=== PATIENT | male | born 1990 | race Caucasian/White ===

== ENCOUNTER 2017-01-15 10:51 | Emergency (ER) | payer MEDICARE, MEDICAID ==
[~2017-01-15] VITALS: Ht 177.8 cm; Wt 90.7 kg
[~2017-01-15 10:51] MED LIST: ADVAIR DISKUS 51 DSK; ALBUTEROL0.09 MG/A2; AMOXICILLIN500 M2 PO; ATARAX25 MG PO; BACTROBAN CREAM15 GM T; BENADRYL25 MG PO; BIAXIN500 MG PO; BIPOLAR MED; CARAFATE1 G1 PO; CIPRO500 MG PO; CLARITIN10 MG PO; CYCLOBENZAPRINE10 MG PO; FLEXERIL5 MG PO; FLONASE ALLERG9.9 ML NAS; FLUOXETINE HYDR20 M1 PO; HYDROCODONE BIT1 T11 PO; IBU-8800 MG PO; IBU800 M1 PO; IBU800 MG PO; LATUDA20 MG; LOW DOSE ASPIRI81 MG PO; MEDROL DOSEPAK4 MG PO; METHYLPRED-DP4 MG PO; MOTRIN800 MG PO; Motrin,Rufen800 MG PO; NAPROSYN500 MG PO; NKHM; PAIN PILL; PENICILLIN VK500 MG PO; PROZAC20 MG PO; Peridex 473 ML473 ML PO; REGLAN10 MG PO; ROBAXIN750 MG PO; SEROQUEL100 MG PO; SERTRALINE HYDR25 MG PO; STRATTERA60 MG PO; VALIUM10 MG PO; VALIUM5 MG PO; VENTOLIN H0.09 MG/AC INH; VOLTAREN50 M1 PO; ZANTAC150 MG PO; ZITHROMAX Z PA250 MG PO; ZITHROMAX250 MG PO; [UNRECOGNIZED DRUG - OTHER]
[2017-01-15] MEDS ORDERED: NAPROSYN500 MG PO (11:12)
[2017-01-15] MEDS ORDERED: Peridex 473 ML473 ML PO (11:12)
[2017-01-15] MEDS ORDERED: CLINDAMYCIN150 MG PO (11:12)
[2017-01-15 19:54] VITALS: BP 177/100
[2017-01-15] MEDS ORDERED: HYDROCODONE BIT1 T11 PO (20:03)
== END 2017-01-15 19:56 | disposition home or self-care (01) ==
LOC: ED 10:51
DX: K04.7 Periapical abscess without sinus (principal); R03.0 Elevated blood-pressure reading, without diagnosis of hypertension; Z91.030 Bee allergy status; Z91.040 Latex allergy status

== ENCOUNTER 2018-02-16 21:23 | Emergency (ER) | payer MEDICARE, MEDICAID ==
[~2018-02-16] VITALS: Ht 177.8 cm; Wt 117.9 kg
[2018-02-16 21:23] VITALS: BP 149/98
[~2018-02-16 21:23] MED LIST changes: +CLINDAMYCIN150 MG PO
[2018-02-16] MEDS ORDERED: NAPROSYN500 MG PO (23:42)
== END 2018-02-17 00:23 | disposition home or self-care (01) ==
LOC: ED 21:23
DX: S20.212A Contusion of left front wall of thorax, initial encounter (principal); S20.211A Contusion of right front wall of thorax, initial encounter; F17.200 Nicotine dependence, unspecified, uncomplicated; Z79.899 Other long term (current) drug therapy; Z91.030 Bee allergy status; Z91.040 Latex allergy status; W22.8XXA Striking against or struck by other objects, initial encounter; Y93.89 Activity, other specified; Y92.89 Other specified places as the place of occurrence of the external cause; Y99.9 Unspecified external cause status

== ENCOUNTER → 2018-08-17 | Outpatient (CLI) | payer MEDICARE, MEDICAID ==
[2018-08-17 16:58] LABS: HEMATOCRIT 44.4 % (42.0-52.0); HEMOGLOBIN 14.9 g/dl (14.0-18.0); MEAN CELL VOLUME 87.4 fl (80.0-94.0); MEAN CORPUSCULAR HGB 29.3 pg (27.0-31.0); MEAN CORPUSCULAR HGB CONC 33.6 g/dl (33.0-37.0); MEAN PLATELET VOLUME 9.2 fl (9.6-12.3); RED BLOOD COUNT 5.08 10*6/uL (4.50-5.90); RED CELL DISTRI WIDTH 11.9 % (0-14.5); WHITE BLOOD COUNT 9.1 10*3/uL (4.8-10.8)
[2018-08-17 17:12] LABS: ALBUMIN 3.9 gm/dl (3.1-4.5); ALKALINE PHOSPHATASE 87 U/L (45-117); BUN 8 mg/dl (7-24); CHLORIDE 110 mmol/L (98-107); CHOLESTEROL 163 mg/dL (<200); CREATININE 1.05 mg/dL (0.70-1.30); HDL CHOLESTEROL 31 mg/dl (40-60); LDL CHOLESTEROL 105 mg/dL (9-159); POTASSIUM 3.8 mmol/L (3.5-5.1); SGOT/AST 27 IU/L (3-35); SGPT/ALT 46 U/L (12-78); SODIUM 141 mmol/L (136-145); TOTAL PROTEIN 7.7 gm/dL (6.4-8.2); TRIGLYCERIDES 135 mg/dl (<150); VLDL CHOLESTEROL 27 mg/dL (6-40)
== END | disposition home or self-care (01) ==
LOC: LAB 16:21
PROVIDERS: Family Medicine
DX: E78.00 Pure hypercholesterolemia, unspecified (principal); E55.9 Vitamin D deficiency, unspecified; F41.1 Generalized anxiety disorder; F90.9 Attention-deficit hyperactivity disorder, unspecified type; E74.00 Glycogen storage disease, unspecified; J45.909 Unspecified asthma, uncomplicated; J98.11 Atelectasis; Z87.891 Personal history of nicotine dependence

== ENCOUNTER → 2019-01-16 | Outpatient (CLI) | payer MEDICARE, MEDICAID | END | disposition home or self-care (01) | LOC: RAD 14:53 | DX: M76.61 Achilles tendinitis, right leg (principal) ==

== ENCOUNTER 2019-10-10 00:10 | Emergency (ER) | payer MEDICARE, MEDICAID ==
[~2019-10-10] VITALS: Ht 177.8 cm; Wt 104.3 kg
[2019-10-10 03:00] VITALS: BP 133/91
== END 2019-10-10 03:19 | disposition home or self-care (01) ==
LOC: ED 00:10
DX: R51 Headache (principal); I10 Essential (primary) hypertension; F31.9 Bipolar disorder, unspecified; Z91.038 Other insect allergy status; Z91.040 Latex allergy status; Z79.899 Other long term (current) drug therapy; Z79.2 Long term (current) use of antibiotics

== ENCOUNTER 2019-10-14 02:51 | Emergency (ER) | payer MEDICARE, MEDICAID ==
[~2019-10-14] VITALS: Ht 177.8 cm; Wt 104.3 kg
[2019-10-14] MEDS ORDERED: Motrin,Rufen800 MG PO (04:34)
== END 2019-10-14 04:51 | disposition home or self-care (01) ==
LOC: ED 02:51
DX: B34.9 Viral infection, unspecified (principal); I10 Essential (primary) hypertension; F17.200 Nicotine dependence, unspecified, uncomplicated; Z91.030 Bee allergy status; Z91.040 Latex allergy status; Z79.2 Long term (current) use of antibiotics; Z79.899 Other long term (current) drug therapy

== ENCOUNTER 2019-11-15 21:03 | Emergency (ER) | payer MEDICARE, MEDICAID ==
[~2019-11-15] VITALS: Ht 177.8 cm; Wt 104.3 kg
[2019-11-15 21:08] VITALS: BP 141/82
== END 2019-11-16 00:01 | disposition home or self-care (01) ==
LOC: ED 21:03
DX: S96.911A Strain of unspecified muscle and tendon at ankle and foot level, right foot, initial encounter (principal); F17.200 Nicotine dependence, unspecified, uncomplicated; Z91.030 Bee allergy status; Z91.040 Latex allergy status; Z79.899 Other long term (current) drug therapy; Z79.2 Long term (current) use of antibiotics; X58.XXXA Exposure to other specified factors, initial encounter; Y93.89 Activity, other specified; Y92.89 Other specified places as the place of occurrence of the external cause; Y99.8 Other external cause status

== ENCOUNTER 2019-11-16 17:00 | Emergency (ER) | payer MEDICARE, MEDICAID ==
[~2019-11-16] VITALS: Ht 177.8 cm; Wt 104.3 kg
[2019-11-16 17:20] VITALS: BP 140/80
== END 2019-11-16 18:32 | disposition home or self-care (01) ==
LOC: ED 17:00
DX: S93.402A Sprain of unspecified ligament of left ankle, initial encounter (principal); I10 Essential (primary) hypertension; F17.200 Nicotine dependence, unspecified, uncomplicated; Z91.030 Bee allergy status; Z91.040 Latex allergy status; Z79.899 Other long term (current) drug therapy; X58.XXXA Exposure to other specified factors, initial encounter; Y93.89 Activity, other specified; Y92.89 Other specified places as the place of occurrence of the external cause; Y99.8 Other external cause status

== ENCOUNTER 2019-11-18 20:41 | Emergency (ER) | payer MEDICARE, MEDICAID ==
[~2019-11-18] VITALS: Ht 177.8 cm; Wt 104.3 kg
[2019-11-18 20:41] VITALS: BP 1142/70
== END 2019-11-18 20:56 | disposition home or self-care (01) ==
LOC: ED 20:41
DX: M25.572 Pain in left ankle and joints of left foot (principal); Z91.030 Bee allergy status; Z91.040 Latex allergy status; Z79.899 Other long term (current) drug therapy; X58.XXXA Exposure to other specified factors, initial encounter; Y93.89 Activity, other specified; Y92.098 Other place in other non-institutional residence as the place of occurrence of the external cause; Y99.8 Other external cause status

== ENCOUNTER 2019-11-26 14:52 | Emergency (ER) | payer MEDICARE, MEDICAID ==
[~2019-11-26] VITALS: Ht 177.8 cm; Wt 99.8 kg
[2019-11-26 14:56] VITALS: BP 156/98
[2019-11-26] MEDS ORDERED: DOXYCYCLINE100 M3 PO (14:57)
[2019-11-26] MEDS ORDERED: IBUPROFEN600 MG PO (14:57)
== END 2019-11-26 14:59 | disposition home or self-care (01) ==
LOC: ED 14:52
DX: J34.0 Abscess, furuncle and carbuncle of nose (principal); Z91.030 Bee allergy status; Z91.040 Latex allergy status; Z79.899 Other long term (current) drug therapy

== ENCOUNTER 2019-12-26 20:49 | Emergency (ER) | payer MEDICARE, MEDICAID ==
[~2019-12-26] VITALS: Wt 102.1 kg
[~2019-12-26 20:49] MED LIST changes: +DOXYCYCLINE100 M3 PO; +IBUPROFEN600 MG PO
[2019-12-26 21:10] VITALS: BP 150/78
== END 2019-12-26 21:50 | disposition home or self-care (01) ==
LOC: ED 20:49
DX: R11.10 Vomiting, unspecified (principal); I10 Essential (primary) hypertension; F31.9 Bipolar disorder, unspecified; F17.200 Nicotine dependence, unspecified, uncomplicated; Z91.040 Latex allergy status; Z91.030 Bee allergy status; Z79.899 Other long term (current) drug therapy

== ENCOUNTER 2020-01-24 10:27 | Emergency (ER) | payer MEDICARE, MEDICAID ==
[~2020-01-24] VITALS: Wt 95.3 kg
[2020-01-24 10:39] VITALS: BP 148/75
[2020-01-24] MEDS ORDERED: IBU800 MG PO (12:31)
== END 2020-01-24 12:33 | disposition home or self-care (01) ==
LOC: ED 10:27
DX: S32.2XXA Fracture of coccyx, initial encounter for closed fracture (principal); Z91.030 Bee allergy status; Z91.040 Latex allergy status; Z79.899 Other long term (current) drug therapy; W10.8XXA Fall (on) (from) other stairs and steps, initial encounter; Y93.89 Activity, other specified; Y92.89 Other specified places as the place of occurrence of the external cause; Y99.8 Other external cause status

== ENCOUNTER 2020-02-05 23:09 | Emergency (ER) | payer MEDICARE, MEDICAID ==
[~2020-02-05] VITALS: Ht 177.8 cm; Wt 99.8 kg
[2020-02-05 23:25] VITALS: BP 144/84
== END 2020-02-06 00:07 | disposition home or self-care (01) ==
LOC: ED 23:09
DX: T21.12XA Burn of first degree of abdominal wall, initial encounter (principal); Z91.040 Latex allergy status; Z91.030 Bee allergy status; Z79.899 Other long term (current) drug therapy; X58.XXXA Exposure to other specified factors, initial encounter; Y93.89 Activity, other specified; Y92.89 Other specified places as the place of occurrence of the external cause; Y99.8 Other external cause status

== ENCOUNTER 2020-02-11 16:27 | Emergency (ER) | payer MEDICARE, MEDICAID ==
[~2020-02-11] VITALS: Ht 177.8 cm; Wt 99.8 kg
[2020-02-11 16:47] VITALS: BP 147/95
[2020-02-11 17:53] LABS: BASO # 0.1 10*3/uL (0.0-0.1); EOS # 0.3 10*3/uL (0.0-0.4); EOS % 3.5 % (1.0-4.0); HEMATOCRIT 43.9 % (42.0-52.0); LYMPH % 22.9 % (27.0-41.0); MEAN CELL VOLUME 88.5 fl (80.0-94.0); MEAN CORPUSCULAR HGB 29.6 pg (27.0-31.0); MEAN CORPUSCULAR HGB CONC 33.5 g/dl (33.0-37.0); MEAN PLATELET VOLUME 9.1 fl (9.6-12.3); MONO # 0.9 10*3/uL (0.1-1.0); MONO % 10.8 % (3.0-9.0); NEUT # 5.4 10*3/uL (2.3-7.9); NEUT % 61.6 % (47.0-73.0); PLATELET COUNT AUTOMATED 255 10*3/uL (130-400); RED BLOOD COUNT 4.96 10*6/uL (4.50-5.90); RED CELL DISTRI WIDTH 11.9 % (0-14.5); WHITE BLOOD COUNT 8.7 10*3/uL (4.8-10.8)
[2020-02-11 18:03] LABS: ACT PARTIAL THROMBO TIME 24.7 SECONDS (20.0-32.1); INTERNATIONAL NORM RATIO 0.9 (2.0-3.5)
[2020-02-11 18:12] LABS: ALBUMIN 3.7 gm/dl (3.1-4.5); ALKALINE PHOSPHATASE 65 U/L (45-117); BUN 8 mg/dl (7-24); CHLORIDE 112 mmol/L (98-107); LIPASE 78 U/L (73-393); POTASSIUM 3.8 mmol/L (3.5-5.1); SGOT/AST 18 IU/L (3-35); SGPT/ALT 45 U/L (12-78); SODIUM 142 mmol/L (136-145); TOTAL PROTEIN 7.3 gm/dL (6.4-8.2)
[2020-02-11 18:18] LABS: TROPONIN I < 0.015 ng/ml (<0.045)
== END 2020-02-11 18:40 | disposition left against medical advice (07) ==
LOC: ED 16:27
PROVIDERS: Nurse Practitioner Family
DX: I10 Essential (primary) hypertension (principal); R79.1 Abnormal coagulation profile; Z91.030 Bee allergy status; Z91.040 Latex allergy status; Z79.899 Other long term (current) drug therapy

== ENCOUNTER 2020-02-20 21:42 | Emergency (ER) | payer MEDICARE, MEDICAID ==
[2020-02-20 23:00] VITALS: BP 151/91
[2020-02-21] MEDS ORDERED: TYLENOL325 M1 PO (00:15)
== END 2020-02-21 00:29 | disposition home or self-care (01) ==
LOC: ED 21:42
DX: S60.222A Contusion of left hand, initial encounter (principal); I10 Essential (primary) hypertension; Z91.030 Bee allergy status; Z91.040 Latex allergy status; Z79.899 Other long term (current) drug therapy; W18.39XA Other fall on same level, initial encounter; Y93.89 Activity, other specified; Y92.89 Other specified places as the place of occurrence of the external cause; Y99.8 Other external cause status

== ENCOUNTER 2020-03-30 22:30 | Emergency (ER) | payer MEDICARE, MEDICAID ==
[~2020-03-30] VITALS: Ht 177.8 cm; Wt 99.8 kg
[~2020-03-30 22:30] MED LIST changes: +TYLENOL325 M1 PO
[2020-03-30 22:37] VITALS: BP 132/75
[2020-03-30] MEDS ORDERED: Motrin,Rufen800 MG PO (22:44)
== END 2020-03-30 22:50 | disposition home or self-care (01) ==
LOC: ED 22:30
DX: M25.521 Pain in right elbow (principal); Z91.030 Bee allergy status; Z91.040 Latex allergy status; Z79.899 Other long term (current) drug therapy

== ENCOUNTER → 2020-05-26 | Outpatient (CLI) | payer MEDICARE, MEDICAID | END | disposition home or self-care (01) | LOC: ED 18:17 → RAD 18:22 → EDSTATUS 18:22 | PROVIDERS: ATTEND Nurse Practitioner Family | DX: M25.572 Pain in left ankle and joints of left foot (principal) ==

== ENCOUNTER 2020-06-23 01:28 | Emergency (ER) | payer MEDICARE, MEDICAID ==
[~2020-06-23] VITALS: Ht 177.8 cm; Wt 111.1 kg
[2020-06-23 02:00] VITALS: BP 158/84
== END 2020-06-23 04:29 | disposition home or self-care (01) ==
LOC: ED 01:28
DX: S66.912A Strain of unspecified muscle, fascia and tendon at wrist and hand level, left hand, initial encounter (principal); Z91.030 Bee allergy status; Z91.040 Latex allergy status; Z79.899 Other long term (current) drug therapy; W01.0XXA Fall on same level from slipping, tripping and stumbling without subsequent striking against object, initial encounter; Y93.89 Activity, other specified; Y92.89 Other specified places as the place of occurrence of the external cause; Y99.8 Other external cause status

== ENCOUNTER 2020-07-10 04:49 | Emergency (ER) | payer MEDICARE, MEDICAID ==
[~2020-07-10] VITALS: Ht 177.8 cm; Wt 108.9 kg
[2020-07-10 04:57] VITALS: BP 157/97
== END 2020-07-10 06:52 | disposition left against medical advice (07) ==
LOC: ED 04:49
DX: R10.9 Unspecified abdominal pain (principal); Z91.030 Bee allergy status; Z91.040 Latex allergy status; Z79.899 Other long term (current) drug therapy

== ENCOUNTER → 2020-07-14 | Outpatient (CLI) | payer MEDICARE, MEDICAID ==
[~2020-07-14] MED LIST changes: +AMLODIPINE BESY10 MG PO
== END | disposition home or self-care (01) ==
LOC: COVID19 07-11 05:34
PROVIDERS: ATTEND Family Medicine
DX: R05 Cough (principal); R43.9 Unspecified disturbances of smell and taste; Z20.828 Contact with and (suspected) exposure to other viral communicable diseases

== ENCOUNTER 2020-09-17 17:04 | Emergency (ER) | payer MEDICARE, MEDICAID ==
[~2020-09-17] VITALS: Ht 177.8 cm; Wt 102.1 kg
[~2020-09-17 17:04] MED LIST changes: -AMLODIPINE BESY10 MG PO
[2020-09-17 17:13] VITALS: BP 149/86
[2020-09-17] MEDS ORDERED: AMLODIPINE BESY10 MG PO (17:13)
== END 2020-09-17 19:14 | disposition home or self-care (01) ==
LOC: ED 17:04
DX: S96.911A Strain of unspecified muscle and tendon at ankle and foot level, right foot, initial encounter (principal); Z91.030 Bee allergy status; Z91.040 Latex allergy status; Z79.899 Other long term (current) drug therapy; W22.8XXA Striking against or struck by other objects, initial encounter; Y93.89 Activity, other specified; Y92.89 Other specified places as the place of occurrence of the external cause; Y99.8 Other external cause status

== ENCOUNTER 2020-09-23 11:13 | Emergency (ER) | payer MEDICARE, MEDICAID ==
[~2020-09-23] VITALS: Wt 113.4 kg
[~2020-09-23 11:13] MED LIST changes: +AMLODIPINE BESY10 MG PO
[2020-09-23 11:20] VITALS: BP 130/70
== END 2020-09-23 12:30 | disposition left against medical advice (07) ==
LOC: ED 11:13
DX: F31.9 Bipolar disorder, unspecified (principal); Z76.0 Encounter for issue of repeat prescription; Z79.899 Other long term (current) drug therapy; Z91.030 Bee allergy status; Z91.040 Latex allergy status

== ENCOUNTER 2020-09-28 17:49 | Emergency (ER) | payer MEDICARE, MEDICAID ==
[~2020-09-28] VITALS: Wt 102.1 kg
[2020-09-28 17:53] VITALS: BP 151/90
[2020-09-28] MEDS ORDERED: AMOXICILLIN500 M2 PO (17:58)
[2020-09-28] MEDS ORDERED: Motrin,Rufen800 MG PO (17:58)
== END 2020-09-28 18:15 | disposition home or self-care (01) ==
LOC: ED 17:49
DX: K08.89 Other specified disorders of teeth and supporting structures (principal); Z91.030 Bee allergy status; Z91.040 Latex allergy status; Z79.899 Other long term (current) drug therapy

== ENCOUNTER 2020-10-18 18:06 | Emergency (ER) | payer MEDICARE, MEDICAID ==
[~2020-10-18] VITALS: Ht 177.8 cm; Wt 104.3 kg
[2020-10-18 18:19] VITALS: BP 156/86
== END 2020-10-18 18:39 | disposition home or self-care (01) ==
LOC: ED 18:06
DX: S99.922A Unspecified injury of left foot, initial encounter (principal); I10 Essential (primary) hypertension; Z91.040 Latex allergy status; Z79.899 Other long term (current) drug therapy; X58.XXXA Exposure to other specified factors, initial encounter; Y93.89 Activity, other specified; Y92.89 Other specified places as the place of occurrence of the external cause; Y99.8 Other external cause status

== ENCOUNTER 2020-10-20 19:16 | Emergency (ER) | payer MEDICARE, MEDICAID ==
[~2020-10-20] VITALS: Ht 177.8 cm; Wt 104.3 kg
[2020-10-20 19:29] VITALS: BP 122/78
== END 2020-10-20 21:02 | disposition home or self-care (01) ==
LOC: ED 19:16
DX: S60.222A Contusion of left hand, initial encounter (principal); Z91.040 Latex allergy status; Z79.899 Other long term (current) drug therapy; W20.8XXA Other cause of strike by thrown, projected or falling object, initial encounter; Y93.89 Activity, other specified; Y92.89 Other specified places as the place of occurrence of the external cause; Y99.8 Other external cause status

== ENCOUNTER 2020-10-22 15:23 | Emergency (ER) | payer MEDICARE, MEDICAID ==
[~2020-10-22] VITALS: Ht 177.8 cm; Wt 108.9 kg
[2020-10-22 15:40] VITALS: BP 155/64
[2020-10-22 16:36] LABS: BASO # 0.1 10*3/uL (0.0-0.1); BASO % 0.8 % (0.0-1.0); EOS # 0.3 10*3/uL (0.0-0.4); EOS % 4.2 % (1.0-4.0); HEMATOCRIT 47.1 % (42.0-52.0); LYMPH # 1.9 10*3/uL (1.3-4.4); LYMPH % 24.1 % (27.0-41.0); MEAN CELL VOLUME 86.7 fl (80.0-94.0); MEAN CORPUSCULAR HGB 28.7 pg (27.0-31.0); MEAN CORPUSCULAR HGB CONC 33.1 g/dl (33.0-37.0); MEAN PLATELET VOLUME 9.1 fl (9.6-12.3); MONO # 0.8 10*3/uL (0.1-1.0); MONO % 10.7 % (3.0-9.0); NEUT # 4.7 10*3/uL (2.3-7.9); NEUT % 59.9 % (47.0-73.0); PLATELET COUNT AUTOMATED 244 10*3/uL (130-400); RED BLOOD COUNT 5.43 10*6/uL (4.50-5.90); RED CELL DISTRI WIDTH 11.6 % (0-14.5); WHITE BLOOD COUNT 7.8 10*3/uL (4.8-10.8)
[2020-10-22 16:53] LABS: ALBUMIN 3.8 gm/dl (3.1-4.5); ALKALINE PHOSPHATASE 73 U/L (45-117); BUN 10 mg/dl (7-24); CHLORIDE 111 mmol/L (98-107); CREATININE 0.77 mg/dL (0.70-1.30); POTASSIUM 3.9 mmol/L (3.5-5.1); SGOT/AST 12 IU/L (3-35); SGPT/ALT 38 U/L (12-78); SODIUM 141 mmol/L (136-145); TOTAL PROTEIN 7.4 gm/dL (6.4-8.2)
[2020-10-22 16:54] LABS: TROPONIN I < 0.015 ng/ml (<0.045)
== END 2020-10-22 17:25 | disposition home or self-care (01) ==
LOC: ED 15:23
PROVIDERS: Nurse Practitioner
DX: K21.9 Gastro-esophageal reflux disease without esophagitis (principal); I10 Essential (primary) hypertension; F90.9 Attention-deficit hyperactivity disorder, unspecified type; F31.9 Bipolar disorder, unspecified; F17.200 Nicotine dependence, unspecified, uncomplicated; Z91.040 Latex allergy status; Z91.048 Other nonmedicinal substance allergy status; Z79.2 Long term (current) use of antibiotics; Z79.899 Other long term (current) drug therapy

== ENCOUNTER 2020-11-29 11:56 | Emergency (ER) | payer MEDICARE, MEDICAID ==
[2020-11-29 12:04] VITALS: BP 152/75
[2020-11-29] MEDS ORDERED: CEPHALEXIN500 M1 PO (13:03)
== END 2020-11-29 13:19 | disposition home or self-care (01) ==
LOC: ED 11:56
DX: S91.332A Puncture wound without foreign body, left foot, initial encounter (principal); W22.8XXA Striking against or struck by other objects, initial encounter; Y93.89 Activity, other specified; Y92.89 Other specified places as the place of occurrence of the external cause; Y99.8 Other external cause status

== ENCOUNTER 2021-01-10 23:54 | Emergency (ER) | payer MEDICARE, MEDICAID ==
[~2021-01-10] VITALS: Ht 170.1 cm; Wt 117.9 kg
[~2021-01-10 23:54] MED LIST changes: +CEPHALEXIN500 M1 PO
[2021-01-11] MEDS ORDERED: AMOXICILLIN500 M2 PO (01:07)
[2021-01-11 01:14] VITALS: BP 145/86
== END 2021-01-11 01:25 | disposition home or self-care (01) ==
LOC: ED 23:54
DX: K08.89 Other specified disorders of teeth and supporting structures (principal); I10 Essential (primary) hypertension; Z91.040 Latex allergy status; Z79.899 Other long term (current) drug therapy; Z98.890 Other specified postprocedural states

== ENCOUNTER 2021-01-14 14:00 | Emergency (ER) | payer MEDICARE, MEDICAID ==
[~2021-01-14] VITALS: Ht 177.8 cm; Wt 111.1 kg
[2021-01-14] MEDS ORDERED: LISINOPRIL40 MG PO (14:21)
[2021-01-14] MEDS ORDERED: VASOTEC20 MG PO (14:21)
[2021-01-14 14:49] LABS: BASO # 0.1 10*3/uL (0.0-0.1); BASO % 0.7 % (0.0-1.0); EOS # 0.2 10*3/uL (0.0-0.4); EOS % 2.8 % (1.0-4.0); HEMATOCRIT 43.6 % (42.0-52.0); LYMPH # 1.8 10*3/uL (1.3-4.4); LYMPH % 25.6 % (27.0-41.0); MEAN CELL VOLUME 86.2 fl (80.0-94.0); MEAN CORPUSCULAR HGB 29.1 pg (27.0-31.0); MEAN CORPUSCULAR HGB CONC 33.7 g/dl (33.0-37.0); MONO # 0.6 10*3/uL (0.1-1.0); MONO % 8.9 % (3.0-9.0); NEUT # 4.4 10*3/uL (2.3-7.9); NEUT % 61.7 % (47.0-73.0); PLATELET COUNT AUTOMATED 228 10*3/uL (130-400); RED BLOOD COUNT 5.06 10*6/uL (4.50-5.90); WHITE BLOOD COUNT 7.1 10*3/uL (4.8-10.8)
[2021-01-14 15:00] LABS: ACT PARTIAL THROMBO TIME 24.2 SECONDS (20.0-32.1)
[2021-01-14 15:05] LABS: ALBUMIN 3.7 gm/dl (3.1-4.5); ALKALINE PHOSPHATASE 69 U/L (45-117); BUN 15 mg/dl (7-24); CHLORIDE 112 mmol/L (98-107); LIPASE 61 U/L (73-393); POTASSIUM 3.6 mmol/L (3.5-5.1); SGOT/AST 22 IU/L (3-35); SGPT/ALT 43 U/L (12-78); SODIUM 142 mmol/L (136-145); TOTAL PROTEIN 7.5 gm/dL (6.4-8.2); TROPONIN I < 0.015 ng/ml (<0.045)
[2021-01-14 15:17] LABS: BILIRUBIN Negative (Negative); BLOOD Negative (Negative); CLARITY Clear (Clear); COLOR Yellow (Yellow); GLUCOSE Negative (Negative); KETONE Negative (Negative); LEUKO ESTERASE 1+ (Negative); NITRITE Negative (Negative); PH 7.5 (4.5-8.0)
[2021-01-14 15:33] LABS: BACTERIA TRACE; MUCOUS 1+; WBC 21-30 wbc/hpf (0-5)
[2021-01-14 16:12] VITALS: BP 125/89
== END 2021-01-14 16:45 | disposition home or self-care (01) ==
LOC: ED 14:00
PROVIDERS: Physician Assistant
DX: I10 Essential (primary) hypertension (principal); Z91.040 Latex allergy status; Z79.899 Other long term (current) drug therapy; Z98.890 Other specified postprocedural states

== ENCOUNTER 2021-01-31 17:46 | Emergency (ER) | payer MEDICARE, MEDICAID ==
[~2021-01-31 17:46] MED LIST changes: +LISINOPRIL40 MG PO; +VASOTEC20 MG PO
[2021-01-31 17:47] VITALS: BP 156/56
[2021-01-31] MEDS ORDERED: TYLENOL325 M1 PO (18:07)
== END 2021-01-31 18:13 | disposition home or self-care (01) ==
LOC: ED 17:46
DX: S93.401A Sprain of unspecified ligament of right ankle, initial encounter (principal); K21.9 Gastro-esophageal reflux disease without esophagitis; I10 Essential (primary) hypertension; F17.200 Nicotine dependence, unspecified, uncomplicated; Z91.040 Latex allergy status; Z79.2 Long term (current) use of antibiotics; Z79.899 Other long term (current) drug therapy; Z98.890 Other specified postprocedural states; X50.1XXA Overexertion from prolonged static or awkward postures, initial encounter; Y93.89 Activity, other specified; Y92.89 Other specified places as the place of occurrence of the external cause; Y99.8 Other external cause status

== ENCOUNTER 2021-03-01 16:17 | Emergency (ER) | payer MEDICARE, MEDICAID ==
[2021-03-01 16:19] VITALS: BP 134/67
== END 2021-03-01 17:05 | disposition home or self-care (01) ==
LOC: ED 16:17
DX: S61.412A Laceration without foreign body of left hand, initial encounter (principal); Z91.040 Latex allergy status; Z91.048 Other nonmedicinal substance allergy status; Z79.2 Long term (current) use of antibiotics; Z79.899 Other long term (current) drug therapy; W22.8XXA Striking against or struck by other objects, initial encounter; Y93.89 Activity, other specified; Y92.89 Other specified places as the place of occurrence of the external cause; Y99.8 Other external cause status

== ENCOUNTER 2021-03-23 21:08 | Emergency (ER) | payer MEDICARE, MEDICAID ==
[2021-03-23 21:21] VITALS: BP 166/96
[2021-03-23] MEDS ORDERED: NAPROSYN500 MG PO (21:44)
== END 2021-03-23 22:21 | disposition home or self-care (01) ==
LOC: ED 21:08
DX: S93.401A Sprain of unspecified ligament of right ankle, initial encounter (principal); Z91.040 Latex allergy status; Z79.2 Long term (current) use of antibiotics; Z79.899 Other long term (current) drug therapy; Z98.890 Other specified postprocedural states; W18.43XA Slipping, tripping and stumbling without falling due to stepping from one level to another, initial encounter; Y93.01 Activity, walking, marching and hiking; Y92.89 Other specified places as the place of occurrence of the external cause; Y99.8 Other external cause status

== ENCOUNTER 2021-05-01 23:09 | Emergency (ER) | payer MEDICARE, MEDICAID ==
[2021-05-01 23:17] VITALS: BP 157/77
== END 2021-05-02 01:26 | disposition home or self-care (01) ==
LOC: ED 23:09
DX: S96.911A Strain of unspecified muscle and tendon at ankle and foot level, right foot, initial encounter (principal); I10 Essential (primary) hypertension; F17.200 Nicotine dependence, unspecified, uncomplicated; Z91.040 Latex allergy status; Z79.899 Other long term (current) drug therapy; X58.XXXA Exposure to other specified factors, initial encounter; Y93.61 Activity, american tackle football; Y92.89 Other specified places as the place of occurrence of the external cause; Y99.8 Other external cause status

== ENCOUNTER → 2021-07-14 | Outpatient (CLI) | payer MEDICARE, MEDICAID ==
[2021-07-14 14:52] LABS: HEMATOCRIT 47.2 % (42.0-52.0); MEAN CELL VOLUME 87.1 fl (80.0-94.0); MEAN CORPUSCULAR HGB 28.8 pg (27.0-31.0); MEAN CORPUSCULAR HGB CONC 33.1 g/dl (33.0-37.0); MEAN PLATELET VOLUME 9.3 fl (9.6-12.3); RED BLOOD COUNT 5.42 10*6/uL (4.50-5.90); RED CELL DISTRI WIDTH 11.8 % (0-14.5); WHITE BLOOD COUNT 8.8 10*3/uL (4.8-10.8)
[2021-07-14 15:27] LABS: ALBUMIN 3.7 gm/dl (3.1-4.5); BUN 11 mg/dl (7-24); CHLORIDE 113 mmol/L (98-107); CREATININE 0.85 mg/dL (0.70-1.30); SGOT/AST 23 IU/L (3-35); SGPT/ALT 53 U/L (12-78); SODIUM 143 mmol/L (136-145); TOTAL PROTEIN 7.5 gm/dL (6.4-8.2); TRIGLYCERIDES 121 mg/dl (<150)
[2021-07-14 15:30] LABS: ALKALINE PHOSPHATASE 56 U/L (45-117); CHOLESTEROL 179 mg/dL (<200); LDL CHOLESTEROL 102 mg/dL (9-159)
[2021-07-14 16:24] LABS: VITAMIN D, 25-HYDROXY 22.4 ng/mL (30-100)
== END | disposition home or self-care (01) ==
LOC: LAB 14:11
PROVIDERS: ATTEND Family Medicine
DX: E55.9 Vitamin D deficiency, unspecified (principal); E78.00 Pure hypercholesterolemia, unspecified

== ENCOUNTER 2021-07-17 02:26 | Emergency (ER) | payer MEDICARE, MEDICAID ==
[~2021-07-17] VITALS: Ht 175.2 cm; Wt 102.1 kg
[2021-07-17 02:37] VITALS: BP 166/88
== END 2021-07-17 03:07 | disposition left against medical advice (07) ==
LOC: ED 02:26
DX: R51.9 Headache, unspecified (principal); I10 Essential (primary) hypertension; Z91.040 Latex allergy status; Z79.899 Other long term (current) drug therapy

== ENCOUNTER 2021-07-20 22:20 | Emergency (ER) | payer MEDICARE, MEDICAID ==
[~2021-07-20] VITALS: Ht 172.7 cm; Wt 72.6 kg
[2021-07-20 22:35] VITALS: BP 162/91
== END 2021-07-20 23:12 | disposition left against medical advice (07) ==
LOC: ED 22:20
DX: M25.571 Pain in right ankle and joints of right foot (principal); Z53.21 Procedure and treatment not carried out due to patient leaving prior to being seen by health care provider

== ENCOUNTER 2021-07-21 14:47 | Emergency (ER) | payer MEDICARE, MEDICAID ==
[~2021-07-21] VITALS: Wt 2.6 kg
[2021-07-21 15:00] VITALS: BP 158/98
== END 2021-07-21 17:14 | disposition home or self-care (01) ==
LOC: ED 14:47
DX: S93.401A Sprain of unspecified ligament of right ankle, initial encounter (principal); Z91.040 Latex allergy status; Z79.2 Long term (current) use of antibiotics; Z79.899 Other long term (current) drug therapy; Z98.890 Other specified postprocedural states; W18.42XA Slipping, tripping and stumbling without falling due to stepping into hole or opening, initial encounter; Y93.89 Activity, other specified; Y92.89 Other specified places as the place of occurrence of the external cause; Y99.8 Other external cause status

== ENCOUNTER 2021-08-24 21:16 | Emergency (ER) | payer MEDICARE, MEDICAID ==
[2021-08-24 21:25] VITALS: BP 121/73
[2021-08-24] MEDS ORDERED: NAPROXEN250 MG PO (21:53)
== END 2021-08-24 22:15 | disposition home or self-care (01) ==
LOC: ED 21:16
DX: S93.402A Sprain of unspecified ligament of left ankle, initial encounter (principal); X58.XXXA Exposure to other specified factors, initial encounter; Y93.89 Activity, other specified; Y92.89 Other specified places as the place of occurrence of the external cause; Y99.8 Other external cause status

== ENCOUNTER 2021-09-17 22:20 | Emergency (ER) | payer MEDICARE, MEDICAID ==
[~2021-09-17] VITALS: Ht 177.8 cm; Wt 95.7 kg
[~2021-09-17 22:20] MED LIST changes: +NAPROXEN250 MG PO
[2021-09-17] MEDS ORDERED: LOSARTAN POTAS100 M1 PO (22:31)
[2021-09-17] MEDS ORDERED: DICLOFENAC SOD75 MG PO (22:32)
[2021-09-17] MEDS ORDERED: LAMOTRIGINE25 M1 PO (22:32)
[2021-09-17] MEDS ORDERED: 'CLONIDINE0.1 MG PO (22:32)
== END 2021-09-17 23:59 | disposition left against medical advice (07) ==
LOC: ED 22:20
DX: Z53.21 Procedure and treatment not carried out due to patient leaving prior to being seen by health care provider (principal)

== ENCOUNTER → 2021-09-24 | Outpatient (CLI) | payer MEDICARE, MEDICAID ==
[~2021-09-24] MED LIST changes: +'CLONIDINE0.1 MG PO; +DICLOFENAC SOD75 MG PO; +LAMOTRIGINE25 M1 PO; +LOSARTAN POTAS100 M1 PO
[2021-09-24 11:31] LABS: URINE AMPHETAMINES < 1000 (1000ng/ml); URINE BARBITURATES < 200 (200ng/ml); URINE BENZODIAZEPINES < 200 (200ng/ml); URINE CANNABINOIDS (THC) < 50 (50ng/ml); URINE COCAINE < 300 (300ng/ml); URINE METHADONE < 300 (300ng/ml); URINE OPIATES < 300 (300ng/ml)
[2021-09-24 11:33] LABS: URINE PHENCYCLIDINE < 25 (25ng/ml)
== END | disposition home or self-care (01) ==
LOC: LAB 10:49
PROVIDERS: ATTEND Nurse Practitioner Family
DX: Z79.899 Other long term (current) drug therapy (principal)

== ENCOUNTER 2021-11-06 13:27 | Emergency (ER) | payer MEDICARE, MEDICAID ==
[~2021-11-06] VITALS: Ht 177.8 cm; Wt 95.3 kg
[2021-11-06 13:32] VITALS: BP 130/89
[2021-11-06] MEDS ORDERED: TYLENOL325 M1 PO (14:31)
[2021-11-06] MEDS ORDERED: NAPROXEN250 MG PO (14:31)
== END 2021-11-06 14:27 | disposition home or self-care (01) ==
LOC: ED 13:27
DX: S20.211A Contusion of right front wall of thorax, initial encounter (principal); F17.200 Nicotine dependence, unspecified, uncomplicated; Z79.899 Other long term (current) drug therapy; W18.39XA Other fall on same level, initial encounter; Y93.89 Activity, other specified; Y92.89 Other specified places as the place of occurrence of the external cause; Y99.8 Other external cause status

== ENCOUNTER 2021-12-16 19:22 | Emergency (ER) | payer MEDICARE, MEDICAID | END 2021-12-16 19:55 | disposition left against medical advice (07) | LOC: ED 19:22 | DX: S90.822A Blister (nonthermal), left foot, initial encounter (principal); Z53.21 Procedure and treatment not carried out due to patient leaving prior to being seen by health care provider; X58.XXXA Exposure to other specified factors, initial encounter; Y93.89 Activity, other specified; Y92.89 Other specified places as the place of occurrence of the external cause; Y99.9 Unspecified external cause status ==

== ENCOUNTER 2022-01-29 16:09 | Emergency (ER) | payer MEDICARE, MEDICAID ==
[~2022-01-29] VITALS: Ht 177.8 cm; Wt 102.1 kg
[2022-01-29 16:21] VITALS: BP 174/94
[2022-01-29 16:51] LABS: BASO # 0.1 10*3/uL (0.0-0.1); BASO % 0.8 % (0.0-1.0); EOS # 0.3 10*3/uL (0.0-0.4); EOS % 2.9 % (1.0-4.0); HEMATOCRIT 48.8 % (42.0-52.0); LYMPH # 2.1 10*3/uL (1.3-4.4); LYMPH % 24.3 % (27.0-41.0); MEAN CELL VOLUME 86.7 fl (80.0-94.0); MEAN CORPUSCULAR HGB 28.8 pg (27.0-31.0); MEAN CORPUSCULAR HGB CONC 33.2 g/dl (33.0-37.0); MEAN PLATELET VOLUME 9.1 fl (9.6-12.3); MONO # 0.7 10*3/uL (0.1-1.0); MONO % 7.9 % (3.0-9.0); NEUT # 5.5 10*3/uL (2.3-7.9); NEUT % 63.7 % (47.0-73.0); PLATELET COUNT AUTOMATED 252 10*3/uL (130-400); RED BLOOD COUNT 5.63 10*6/uL (4.50-5.90); RED CELL DISTRI WIDTH 11.7 % (0-14.5); WHITE BLOOD COUNT 8.6 10*3/uL (4.8-10.8)
[2022-01-29 17:12] LABS: ALKALINE PHOSPHATASE 71 U/L (45-117); BUN 12 mg/dl (7-24); CHLORIDE 113 mmol/L (98-107); CREATININE 0.93 mg/dL (0.70-1.30); POTASSIUM 3.7 mmol/L (3.5-5.1); SGOT/AST 14 IU/L (3-35); SGPT/ALT 39 U/L (12-78); SODIUM 142 mmol/L (136-145); TOTAL PROTEIN 7.4 gm/dL (6.4-8.2)
== END 2022-01-29 17:39 | disposition home or self-care (01) ==
LOC: ED 16:09
PROVIDERS: Nurse Practitioner Family
DX: E11.65 Type 2 diabetes mellitus with hyperglycemia (principal); Z79.899 Other long term (current) drug therapy

== ENCOUNTER 2022-02-01 19:40 | Emergency (ER) | payer MEDICARE, MEDICAID ==
[2022-02-01 19:47] VITALS: BP 136/78
[2022-02-01] MEDS ORDERED: NAPROXEN250 MG PO (20:10)
== END 2022-02-01 20:14 | disposition home or self-care (01) ==
LOC: ED 19:40
DX: S60.222A Contusion of left hand, initial encounter (principal); Z79.899 Other long term (current) drug therapy; X58.XXXA Exposure to other specified factors, initial encounter; Y93.89 Activity, other specified; Y92.89 Other specified places as the place of occurrence of the external cause; Y99.8 Other external cause status

== ENCOUNTER 2022-05-28 15:49 | Emergency (ER) | payer MEDICARE, MEDICAID ==
[~2022-05-28] VITALS: Ht 177.8 cm; Wt 95.3 kg
[2022-05-28 16:00] VITALS: BP 130/56
[2022-05-28] MEDS ORDERED: AMOXICILLIN875 MG PO (17:38)
[2022-05-28] MEDS ORDERED: Motrin,Rufen800 MG PO (17:38)
== END 2022-05-28 17:48 | disposition home or self-care (01) ==
LOC: ED 15:49
DX: K08.89 Other specified disorders of teeth and supporting structures (principal); Z91.040 Latex allergy status; Z79.899 Other long term (current) drug therapy; Z98.890 Other specified postprocedural states

== ENCOUNTER 2022-06-11 08:51 | Emergency (ER) | payer MEDICARE, MEDICAID ==
[~2022-06-11 08:51] MED LIST changes: +AMOXICILLIN875 MG PO
[2022-06-11 09:07] VITALS: BP 142/87
== END 2022-06-11 10:09 | disposition home or self-care (01) ==
LOC: ED 08:51
DX: S93.492A Sprain of other ligament of left ankle, initial encounter (principal); F17.200 Nicotine dependence, unspecified, uncomplicated; Z79.899 Other long term (current) drug therapy; Z91.040 Latex allergy status; X50.1XXA Overexertion from prolonged static or awkward postures, initial encounter; Y93.01 Activity, walking, marching and hiking; Y92.89 Other specified places as the place of occurrence of the external cause; Y99.9 Unspecified external cause status

== ENCOUNTER 2022-07-04 19:35 | Emergency (ER) | payer MEDICARE, MEDICAID | END 2022-07-04 22:06 | disposition left against medical advice (07) | LOC: ED 19:35 | DX: Z53.21 Procedure and treatment not carried out due to patient leaving prior to being seen by health care provider (principal) ==

== ENCOUNTER 2022-07-04 22:11 | Emergency (ER) | payer MEDICARE, MEDICAID ==
[2022-07-04 22:24] VITALS: BP 156/94
== END 2022-07-04 23:27 | disposition home or self-care (01) ==
LOC: ED 22:11
DX: S60.222A Contusion of left hand, initial encounter (principal); Z91.040 Latex allergy status; Z79.899 Other long term (current) drug therapy; W22.8XXA Striking against or struck by other objects, initial encounter; Y93.89 Activity, other specified; Y92.89 Other specified places as the place of occurrence of the external cause; Y99.8 Other external cause status

== ENCOUNTER 2022-07-30 16:19 | Emergency (ER) | payer MEDICARE, MEDICAID | END 2022-07-30 17:00 | disposition left against medical advice (07) | LOC: ED 16:19 | DX: Z53.21 Procedure and treatment not carried out due to patient leaving prior to being seen by health care provider (principal) ==

== ENCOUNTER 2022-08-11 19:18 | Emergency (ER) | payer MEDICARE, MEDICAID ==
[~2022-08-11] VITALS: Ht 182.8 cm; Wt 102.1 kg
[2022-08-11 19:28] VITALS: BP 156/93
== END 2022-08-11 21:59 | disposition left against medical advice (07) ==
LOC: ED 19:18
DX: M25.562 Pain in left knee (principal); Z53.21 Procedure and treatment not carried out due to patient leaving prior to being seen by health care provider; W18.30XA Fall on same level, unspecified, initial encounter; Y93.89 Activity, other specified; Y92.89 Other specified places as the place of occurrence of the external cause; Y99.9 Unspecified external cause status

== ENCOUNTER 2022-08-12 08:12 | Emergency (ER) | payer MEDICARE, MEDICAID ==
[~2022-08-12] VITALS: Ht 177.8 cm; Wt 99.8 kg
[2022-08-12 08:17] VITALS: BP 163/86
== END 2022-08-12 09:25 | disposition home or self-care (01) ==
LOC: ED 08:12
DX: S89.92XA Unspecified injury of left lower leg, initial encounter (principal); Z91.040 Latex allergy status; Z98.890 Other specified postprocedural states; W17.89XA Other fall from one level to another, initial encounter; Y93.89 Activity, other specified; Y92.89 Other specified places as the place of occurrence of the external cause; Y99.8 Other external cause status

== ENCOUNTER 2022-09-29 23:31 | Emergency (ER) | payer MEDICARE, MEDICAID ==
[~2022-09-29] VITALS: Ht 172.7 cm; Wt 113.4 kg
[2022-09-29 23:37] VITALS: BP 138/70
[2022-09-30] MEDS ORDERED: CYCLOBENZAPRINE10 MG PO (02:17)
== END 2022-09-30 02:20 | disposition home or self-care (01) ==
LOC: ED 23:31
DX: S39.012A Strain of muscle, fascia and tendon of lower back, initial encounter (principal); I10 Essential (primary) hypertension; Z91.040 Latex allergy status; Z79.899 Other long term (current) drug therapy; X58.XXXA Exposure to other specified factors, initial encounter; Y93.89 Activity, other specified; Y92.89 Other specified places as the place of occurrence of the external cause; Y99.8 Other external cause status

== ENCOUNTER 2022-10-27 14:48 | Emergency (ER) | payer MEDICARE, MEDICAID ==
[~2022-10-27] VITALS: Ht 177.8 cm; Wt 101.6 kg
[2022-10-27 14:56] VITALS: BP 123/95
== END 2022-10-27 15:46 | disposition home or self-care (01) ==
LOC: ED 14:48
DX: S39.012A Strain of muscle, fascia and tendon of lower back, initial encounter (principal); Z91.040 Latex allergy status; Z79.899 Other long term (current) drug therapy; X58.XXXA Exposure to other specified factors, initial encounter; Y93.89 Activity, other specified; Y92.89 Other specified places as the place of occurrence of the external cause; Y99.8 Other external cause status

== ENCOUNTER → 2022-11-10 | Outpatient (CLI) | payer MEDICARE, MEDICAID ==
[2022-11-10 18:38] LABS: BASO # 0.1 10*3/uL (0.0-0.1); BASO % 0.9 % (0.0-1.0); EOS # 0.3 10*3/uL (0.0-0.4); EOS % 2.9 % (1.0-4.0); HEMATOCRIT 44.6 % (42.0-52.0); LYMPH # 1.9 10*3/uL (1.3-4.4); LYMPH % 20.5 % (27.0-41.0); MEAN CELL VOLUME 89.4 fl (80.0-94.0); MEAN CORPUSCULAR HGB 29.9 pg (27.0-31.0); MEAN CORPUSCULAR HGB CONC 33.4 g/dl (33.0-37.0); MEAN PLATELET VOLUME 9.6 fl (9.6-12.3); MONO # 0.8 10*3/uL (0.1-1.0); MONO % 8.2 % (3.0-9.0); NEUT # 6.2 10*3/uL (2.3-7.9); NEUT % 67.2 % (47.0-73.0); PLATELET COUNT AUTOMATED 219 10*3/uL (130-400); RED BLOOD COUNT 4.99 10*6/uL (4.50-5.90); RED CELL DISTRI WIDTH 11.9 % (0-14.5); WHITE BLOOD COUNT 9.2 10*3/uL (4.8-10.8)
== END | disposition home or self-care (01) ==
LOC: LAB 17:54
PROVIDERS: ATTEND Orthopaedic Surgery
DX: R53.83 Other fatigue (principal); M54.50 Low back pain, unspecified

== ENCOUNTER 2022-12-05 21:42 | Emergency (ER) | payer MEDICARE, MEDICAID ==
[~2022-12-05] VITALS: Ht 172.7 cm; Wt 108.9 kg
[2022-12-05 21:54] VITALS: BP 160/58
== END 2022-12-05 23:22 | disposition home or self-care (01) ==
LOC: ED 21:42
DX: S39.012A Strain of muscle, fascia and tendon of lower back, initial encounter (principal); I10 Essential (primary) hypertension; F31.9 Bipolar disorder, unspecified; Z91.040 Latex allergy status; Z88.8 Allergy status to other drugs, medicaments and biological substances; Z98.890 Other specified postprocedural states; X50.0XXA Overexertion from strenuous movement or load, initial encounter; Y93.89 Activity, other specified; Y92.89 Other specified places as the place of occurrence of the external cause; Y99.0 Civilian activity done for income or pay

== ENCOUNTER 2023-02-02 00:29 | Emergency (ER) | payer MEDICARE, MEDICAID ==
[~2023-02-02] VITALS: Ht 177.8 cm; Wt 127.0 kg
[2023-02-02 00:43] VITALS: BP 146/89
[2023-02-02] MEDS ORDERED: METHOCARBAMOL750 M1 PO (00:58)
[2023-02-02] MEDS ORDERED: NAPROSYN500 MG PO (00:58)
[2023-02-02] MEDS ORDERED: VIBRA-TAB100 MG PO (14:44)
== END 2023-02-02 01:19 | disposition home or self-care (01) ==
LOC: ED 00:29
DX: S39.012A Strain of muscle, fascia and tendon of lower back, initial encounter (principal); M79.671 Pain in right foot; F90.9 Attention-deficit hyperactivity disorder, unspecified type; F31.9 Bipolar disorder, unspecified; I10 Essential (primary) hypertension; Z91.040 Latex allergy status; Z88.8 Allergy status to other drugs, medicaments and biological substances; Z98.890 Other specified postprocedural states; X58.XXXA Exposure to other specified factors, initial encounter; Y93.89 Activity, other specified; Y92.89 Other specified places as the place of occurrence of the external cause; Y99.8 Other external cause status

== ENCOUNTER 2023-02-02 11:39 | Emergency (ER) | payer MEDICARE, MEDICAID ==
[~2023-02-02] VITALS: Wt 102.1 kg
[~2023-02-02 11:39] MED LIST changes: +METHOCARBAMOL750 M1 PO
[2023-02-02 11:59] VITALS: BP 141/99
[2023-02-02 13:35] LABS: BASO # 0.1 10*3/uL (0.0-0.1); BASO % 0.9 % (0.0-1.0); EOS # 0.3 10*3/uL (0.0-0.4); EOS % 4.3 % (1.0-4.0); HEMATOCRIT 45.3 % (42.0-52.0); LYMPH # 1.6 10*3/uL (1.3-4.4); LYMPH % 23.4 % (27.0-41.0); MEAN CELL VOLUME 87.6 fl (80.0-94.0); MEAN CORPUSCULAR HGB 29.8 pg (27.0-31.0); MEAN PLATELET VOLUME 9.4 fl (9.6-12.3); MONO # 0.9 10*3/uL (0.1-1.0); MONO % 13.8 % (3.0-9.0); NEUT # 3.8 10*3/uL (2.3-7.9); NEUT % 57.3 % (47.0-73.0); PLATELET COUNT AUTOMATED 206 10*3/uL (130-400); RED BLOOD COUNT 5.17 10*6/uL (4.50-5.90); RED CELL DISTRI WIDTH 11.5 % (0-14.5); WHITE BLOOD COUNT 6.7 10*3/uL (4.8-10.8)
[2023-02-02 13:58] LABS: ALKALINE PHOSPHATASE 59 U/L (46-116); BUN 9 mg/dl (9-23); CHLORIDE 110 mmol/L (98-107); SGPT/ALT 24 U/L (10-49); TOTAL PROTEIN 6.7 gm/dL (6.0-8.0)
[2023-02-02] MEDS ORDERED: VIBRA-TAB100 MG PO (14:44)
== END 2023-02-02 15:01 | disposition home or self-care (01) ==
LOC: ED 11:39
PROVIDERS: Emergency Medicine
DX: S90.852A Superficial foreign body, left foot, initial encounter (principal); L03.116 Cellulitis of left lower limb; Z91.040 Latex allergy status; Z79.899 Other long term (current) drug therapy; X58.XXXA Exposure to other specified factors, initial encounter; Y93.89 Activity, other specified; Y92.89 Other specified places as the place of occurrence of the external cause; Y99.8 Other external cause status

== ENCOUNTER 2023-02-06 22:26 | Emergency (ER) | payer MEDICARE, MEDICAID ==
[~2023-02-06] VITALS: Ht 177.8 cm; Wt 99.8 kg
[~2023-02-06 22:26] MED LIST changes: +VIBRA-TAB100 MG PO
[2023-02-06 22:35] VITALS: BP 158/96
== END 2023-02-06 23:00 | disposition left against medical advice (07) ==
LOC: ED 22:26
DX: R07.81 Pleurodynia (principal); Z53.21 Procedure and treatment not carried out due to patient leaving prior to being seen by health care provider

== ENCOUNTER 2023-03-06 20:34 | Emergency (ER) | payer MEDICARE, MEDICAID ==
[~2023-03-06] VITALS: Ht 177.8 cm; Wt 104.3 kg
[2023-03-06 20:42] VITALS: BP 151/91
== END 2023-03-06 21:30 | disposition home or self-care (01) ==
LOC: ED 20:34
DX: S63.617A Unspecified sprain of left little finger, initial encounter (principal); S63.92XA Sprain of unspecified part of left wrist and hand, initial encounter; I10 Essential (primary) hypertension; Z91.040 Latex allergy status; Z79.899 Other long term (current) drug therapy; Z79.2 Long term (current) use of antibiotics; X50.9XXA Other and unspecified overexertion or strenuous movements or postures, initial encounter; Y93.89 Activity, other specified; Y92.89 Other specified places as the place of occurrence of the external cause; Y99.8 Other external cause status

== ENCOUNTER 2023-03-18 20:27 | Emergency (ER) | payer MEDICARE, MEDICAID ==
[2023-03-19] MEDS ORDERED: VIBRAMYCIN100 MG PO (10:16)
== END 2023-03-18 21:00 | disposition left against medical advice (07) ==
LOC: ED 20:27
DX: R21 Rash and other nonspecific skin eruption (principal); Z53.21 Procedure and treatment not carried out due to patient leaving prior to being seen by health care provider

== ENCOUNTER 2023-03-19 09:26 | Emergency (ER) | payer MEDICARE, MEDICAID ==
[~2023-03-19] VITALS: Ht 177.8 cm; Wt 99.8 kg
[2023-03-19 09:35] VITALS: BP 170/96
[2023-03-19] MEDS ORDERED: VIBRAMYCIN100 MG PO (10:16)
== END 2023-03-19 10:30 | disposition home or self-care (01) ==
LOC: ED 09:26
DX: L03.311 Cellulitis of abdominal wall (principal); Z91.040 Latex allergy status; Z79.899 Other long term (current) drug therapy; Z79.2 Long term (current) use of antibiotics; Z98.890 Other specified postprocedural states

== ENCOUNTER 2023-06-18 12:00 | Emergency (ER) | payer MEDICARE ==
[~2023-06-18] VITALS: Ht 177.8 cm; Wt 102.1 kg
[~2023-06-18 12:00] MED LIST changes: +VIBRAMYCIN100 MG PO
[2023-06-18 12:37] VITALS: BP 169/92
[2023-06-18 13:56] LABS: BILIRUBIN Negative (Negative); BLOOD Negative (Negative); CLARITY Clear (Clear); COLOR Yellow (Yellow); GLUCOSE Negative (Negative); KETONE Trace (Negative); LEUKO ESTERASE Trace (Negative); NITRITE Negative (Negative); SPECIFIC GRAVITY 1.025 (1.001-1.030)
[2023-06-18 14:10] LABS: MUCOUS TRACE; WBC 0-2 wbc/hpf (0-5)
== END 2023-06-18 16:09 | disposition home or self-care (01) ==
LOC: ED 12:00
PROVIDERS: Nurse Practitioner
DX: R36.9 Urethral discharge, unspecified (principal); N46.11 Organic oligospermia; Z91.040 Latex allergy status; Z79.899 Other long term (current) drug therapy; Z98.890 Other specified postprocedural states

== ENCOUNTER 2023-07-09 16:19 | Emergency (ER) | payer MEDICARE ==
[~2023-07-09] VITALS: Ht 177.8 cm; Wt 102.1 kg
[2023-07-09 16:38] VITALS: BP 150/92
== END 2023-07-09 18:25 | disposition home or self-care (01) ==
LOC: ED 16:19
DX: S90.121A Contusion of right lesser toe(s) without damage to nail, initial encounter (principal); F90.9 Attention-deficit hyperactivity disorder, unspecified type; Z91.040 Latex allergy status; Z88.8 Allergy status to other drugs, medicaments and biological substances; Z98.890 Other specified postprocedural states; Z87.891 Personal history of nicotine dependence; W20.8XXA Other cause of strike by thrown, projected or falling object, initial encounter; Y93.89 Activity, other specified; Y92.89 Other specified places as the place of occurrence of the external cause; Y99.8 Other external cause status

== ENCOUNTER 2023-08-01 13:09 | Emergency (ER) | payer MEDICARE, MEDICAID ==
[~2023-08-01] VITALS: Ht 177.8 cm; Wt 102.1 kg
[2023-08-01 13:37] VITALS: BP 163/86
[2023-08-01] MEDS ORDERED: PREDNISONE50 MG PO (18:47)
== END 2023-08-01 19:03 | disposition home or self-care (01) ==
LOC: ED 13:09
DX: S52.021A Displaced fracture of olecranon process without intraarticular extension of right ulna, initial encounter for closed fracture (principal); M25.521 Pain in right elbow; F90.9 Attention-deficit hyperactivity disorder, unspecified type; F31.9 Bipolar disorder, unspecified; I10 Essential (primary) hypertension; Z91.040 Latex allergy status; Z88.8 Allergy status to other drugs, medicaments and biological substances; Z98.890 Other specified postprocedural states; X58.XXXA Exposure to other specified factors, initial encounter; Y93.89 Activity, other specified; Y92.89 Other specified places as the place of occurrence of the external cause; Y99.8 Other external cause status

== ENCOUNTER 2023-10-24 17:00 | Emergency (ER) | payer MEDICARE, MEDICAID ==
[~2023-10-24] VITALS: Ht 177.8 cm; Wt 108.0 kg
[~2023-10-24 17:00] MED LIST changes: +PREDNISONE50 MG PO
[2023-10-24 17:21] VITALS: BP 177/97
[2023-10-24] MEDS ORDERED: BENZONATATE 100 MG CAP PO ONE (18:35)
[2023-10-24] MEDS ORDERED: BENZONATATE100 M1 PO (18:36)
== END 2023-10-24 18:57 | disposition home or self-care (01) ==
LOC: ED 17:00
DX: J30.9 Allergic rhinitis, unspecified (principal); R05.9 Cough, unspecified; I10 Essential (primary) hypertension; F90.9 Attention-deficit hyperactivity disorder, unspecified type; F31.9 Bipolar disorder, unspecified; Z91.040 Latex allergy status; Z88.8 Allergy status to other drugs, medicaments and biological substances; Z98.890 Other specified postprocedural states

== ENCOUNTER → 2023-11-08 | Outpatient (CLI) | payer MEDICARE, MEDICAID ==
[~2023-11-08] MED LIST changes: +BENZONATATE100 M1 PO
== END | disposition home or self-care (01) ==
LOC: LAB 10:31
PROVIDERS: ATTEND Nurse Practitioner Family
DX: Z79.899 Other long term (current) drug therapy (principal)

== ENCOUNTER 2023-12-02 20:31 | Emergency (ER) | payer MEDICARE, MEDICAID ==
[~2023-12-02] VITALS: Ht 177.8 cm; Wt 102.1 kg
[2023-12-02 20:47] VITALS: BP 146/96
[2023-12-02] MEDS ORDERED: IBUPROFEN 800 MG TAB PO ONE (21:05)
== END 2023-12-02 22:42 | disposition home or self-care (01) ==
LOC: ED 20:31
DX: S90.02XA Contusion of left ankle, initial encounter (principal); F17.200 Nicotine dependence, unspecified, uncomplicated; Z91.040 Latex allergy status; Z79.899 Other long term (current) drug therapy; Z98.890 Other specified postprocedural states; W22.8XXA Striking against or struck by other objects, initial encounter; Y93.89 Activity, other specified; Y92.89 Other specified places as the place of occurrence of the external cause; Y99.8 Other external cause status

== ENCOUNTER 2023-12-08 20:01 | Emergency (ER) | payer MEDICARE, MEDICAID ==
[~2023-12-08] VITALS: Ht 177.8 cm; Wt 102.1 kg
[2023-12-08 20:01] VITALS: BP 152/96
[2023-12-08] MEDS ORDERED: Ketorolac Tromethamine 60 MG/2 ML VIAL IM ONE (20:15)
[2023-12-08] MEDS ORDERED: Dexamethasone Sodium Phospha 20 MG/5 ML VIAL IM ONE (20:15)
[2023-12-08] MEDS ORDERED: PREDNISONE50 MG PO (20:43)
== END 2023-12-08 20:45 | disposition home or self-care (01) ==
LOC: ED 20:01
DX: M62.830 Muscle spasm of back (principal); F90.9 Attention-deficit hyperactivity disorder, unspecified type; Z91.040 Latex allergy status; Z88.8 Allergy status to other drugs, medicaments and biological substances; Z98.890 Other specified postprocedural states

== ENCOUNTER 2024-01-29 12:47 | Emergency (ER) | payer OTHER, MEDICAID ==
[~2024-01-29] VITALS: Ht 177.8 cm; Wt 102.1 kg
[2024-01-29 13:49] VITALS: BP 160/97
[2024-01-29] MEDS ORDERED: NAPROSYN500 MG PO (17:18)
== END 2024-01-29 17:26 | disposition home or self-care (01) ==
LOC: ED 12:47
DX: S96.912A Strain of unspecified muscle and tendon at ankle and foot level, left foot, initial encounter (principal); S39.012A Strain of muscle, fascia and tendon of lower back, initial encounter; I10 Essential (primary) hypertension; F90.9 Attention-deficit hyperactivity disorder, unspecified type; Z91.040 Latex allergy status; Z88.8 Allergy status to other drugs, medicaments and biological substances; Z98.890 Other specified postprocedural states; W22.8XXA Striking against or struck by other objects, initial encounter; Y93.01 Activity, walking, marching and hiking; Y92.89 Other specified places as the place of occurrence of the external cause; Y99.8 Other external cause status

== ENCOUNTER 2024-04-28 20:11 | Emergency (ER) | payer OTHER, MEDICAID ==
[~2024-04-28] VITALS: Ht 177.8 cm; Wt 99.8 kg
[2024-04-28 20:19] VITALS: BP 172/101
== END 2024-04-28 20:28 | disposition home or self-care (01) ==
LOC: ED 20:11
DX: L84 Corns and callosities (principal); F90.9 Attention-deficit hyperactivity disorder, unspecified type; F31.9 Bipolar disorder, unspecified; Z91.040 Latex allergy status; Z88.8 Allergy status to other drugs, medicaments and biological substances; Z98.890 Other specified postprocedural states

== ENCOUNTER 2024-11-12 13:59 | Emergency (ER) | payer OTHER, MEDICAID ==
[~2024-11-12] VITALS: Ht 177.8 cm; Wt 102.1 kg
[2024-11-12 14:12] VITALS: BP 138/72
[2024-11-12] MEDS ORDERED: ACETAMINOPHEN 325 MG TAB PO ONE (16:15)
== END 2024-11-12 16:36 | disposition home or self-care (01) ==
LOC: ED 13:59
DX: S93.402A Sprain of unspecified ligament of left ankle, initial encounter (principal); Z91.040 Latex allergy status; Z88.8 Allergy status to other drugs, medicaments and biological substances; Z98.890 Other specified postprocedural states; X58.XXXA Exposure to other specified factors, initial encounter; Y93.89 Activity, other specified; Y92.89 Other specified places as the place of occurrence of the external cause; Y99.8 Other external cause status

== ENCOUNTER 2024-12-05 17:27 | Emergency (ER) | payer OTHER, MEDICAID ==
[~2024-12-05] VITALS: Ht 177.8 cm; Wt 112.5 kg
[2024-12-05 17:39] VITALS: BP 157/90
[2024-12-05] MEDS ORDERED: Carafate1 GM PO (17:40)
[2024-12-05] MEDS ORDERED: METHYLPHENIDATE54 M3 PO (17:40)
[2024-12-05] MEDS ORDERED: FAMOTIDINE20 M1 PO (17:40)
[2024-12-05] MEDS ORDERED: CELECOXIB200 M1 PO (17:40)
[2024-12-05] MEDS ORDERED: Bacitracin Zinc 14 GM TUBE T ONE (17:50)
== END 2024-12-05 17:52 | disposition home or self-care (01) ==
LOC: ED 17:27
DX: S60.411A Abrasion of left index finger, initial encounter (principal); I10 Essential (primary) hypertension; F31.9 Bipolar disorder, unspecified; Z79.899 Other long term (current) drug therapy; Z91.040 Latex allergy status; Z98.890 Other specified postprocedural states; W25.XXXA Contact with sharp glass, initial encounter; Y93.89 Activity, other specified; Y92.89 Other specified places as the place of occurrence of the external cause; Y99.8 Other external cause status

== ENCOUNTER 2024-12-05 19:37 | Emergency (ER) | payer OTHER, MEDICAID ==
[~2024-12-05] VITALS: Ht 177.8 cm; Wt 112.5 kg
[2024-12-05 19:37] VITALS: BP 180/106
[~2024-12-05 19:37] MED LIST changes: +CELECOXIB200 M1 PO; +Carafate1 GM PO; +FAMOTIDINE20 M1 PO; +METHYLPHENIDATE54 M3 PO
== END 2024-12-05 20:03 | disposition home or self-care (01) ==
LOC: ED 19:37
DX: S60.411A Abrasion of left index finger, initial encounter (principal); Z79.899 Other long term (current) drug therapy; Z91.040 Latex allergy status; Z98.890 Other specified postprocedural states; W27.8XXA Contact with other nonpowered hand tool, initial encounter; Y93.89 Activity, other specified; Y92.89 Other specified places as the place of occurrence of the external cause; Y99.8 Other external cause status

== ENCOUNTER 2025-01-16 15:44 | Emergency (ER) | payer OTHER, MEDICAID ==
[~2025-01-16] VITALS: Wt 102.1 kg
[2025-01-16 16:12] VITALS: BP 156/93
== END 2025-01-16 18:07 | disposition home or self-care (01) ==
LOC: ED 15:44
DX: S60.222A Contusion of left hand, initial encounter (principal); I10 Essential (primary) hypertension; F31.9 Bipolar disorder, unspecified; Z79.899 Other long term (current) drug therapy; Z91.040 Latex allergy status; Z98.890 Other specified postprocedural states; X58.XXXA Exposure to other specified factors, initial encounter; Y93.54 Activity, bowling; Y92.89 Other specified places as the place of occurrence of the external cause; Y99.8 Other external cause status

== ENCOUNTER → 2025-01-30 | Outpatient (CLI) | payer OTHER, MEDICAID ==
[2025-01-30 07:52] LABS: BASO # 0.1 10*3/uL (0.0-0.1); BASO % 0.9 % (0.0-1.0); EOS # 0.3 10*3/uL (0.0-0.4); EOS % 4.2 % (1.0-4.0); HEMATOCRIT 47.3 % (42.0-52.0); MEAN CELL VOLUME 86.8 fl (80.0-94.0); MEAN CORPUSCULAR HGB 29.2 pg (27.0-31.0); MEAN CORPUSCULAR HGB CONC 33.6 g/dl (33.0-37.0); MONO # 0.8 10*3/uL (0.1-1.0); MONO % 11.9 % (3.0-9.0); NEUT # 3.3 10*3/uL (2.3-7.9); NEUT % 50.2 % (47.0-73.0); PLATELET COUNT AUTOMATED 231 10*3/uL (130-400); RED BLOOD COUNT 5.45 10*6/uL (4.50-5.90); RED CELL DISTRI WIDTH 11.7 % (0-14.5); WHITE BLOOD COUNT 6.7 10*3/uL (4.8-10.8)
[2025-01-30 09:09] LABS: ALKALINE PHOSPHATASE 63 U/L (46-116); BUN 9 mg/dl (9-23); CHLORIDE 107 mmol/L (98-107); CHOLESTEROL 185 mg/dL (<200); LDL CHOLESTEROL 131 mg/dL (9-159); POTASSIUM 3.5 mmol/L (3.4-5.1); SGPT/ALT 40 U/L (5-49); TOTAL PROTEIN 7.1 gm/dL (6.0-8.0); TRIGLYCERIDES 97 mg/dl (<150)
== END | disposition home or self-care (01) ==
LOC: LAB 07:23
PROVIDERS: ATTEND Family Medicine
DX: I10 Essential (primary) hypertension (principal)

== ENCOUNTER 2025-02-23 22:50 | Emergency (ER) | payer OTHER, MEDICAID ==
[~2025-02-23] VITALS: Ht 175.3 cm; Wt 102.1 kg
[2025-02-23 23:04] VITALS: BP 150/102
== END 2025-02-24 00:37 | disposition home or self-care (01) ==
LOC: ED 22:50
DX: S66.912A Strain of unspecified muscle, fascia and tendon at wrist and hand level, left hand, initial encounter (principal); I10 Essential (primary) hypertension; F90.9 Attention-deficit hyperactivity disorder, unspecified type; K21.9 Gastro-esophageal reflux disease without esophagitis; Z98.890 Other specified postprocedural states; Z91.040 Latex allergy status; Z79.899 Other long term (current) drug therapy; W17.89XA Other fall from one level to another, initial encounter; Y93.I9 Activity, other involving external motion; Y92.89 Other specified places as the place of occurrence of the external cause; Y99.8 Other external cause status

== ENCOUNTER 2025-02-24 14:26 | Emergency (ER) | payer OTHER, MEDICAID | END 2025-02-24 18:24 | disposition left against medical advice (07) | LOC: ED 14:26 | DX: M25.539 Pain in unspecified wrist (principal); Z53.21 Procedure and treatment not carried out due to patient leaving prior to being seen by health care provider ==

== ENCOUNTER 2025-03-09 14:09 | Emergency (ER) | payer OTHER, MEDICAID ==
[~2025-03-09] VITALS: Ht 177.8 cm; Wt 102.1 kg
[2025-03-09] MEDS ORDERED: ACETAMINOPHEN500 M4 PO (14:27)
[2025-03-09] MEDS ORDERED: PREDNISONE50 MG PO (14:27)
== END 2025-03-09 14:41 | disposition home or self-care (01) ==
LOC: ED 14:09
DX: S63.502A Unspecified sprain of left wrist, initial encounter (principal); Z91.040 Latex allergy status; Z79.899 Other long term (current) drug therapy; Z98.890 Other specified postprocedural states; X50.1XXA Overexertion from prolonged static or awkward postures, initial encounter; Y93.89 Activity, other specified; Y92.89 Other specified places as the place of occurrence of the external cause; Y99.8 Other external cause status

== ENCOUNTER 2025-04-18 22:48 | Emergency (ER) | payer OTHER, MEDICAID ==
[~2025-04-18] VITALS: Ht 177.8 cm; Wt 99.8 kg
[~2025-04-18 22:48] MED LIST changes: +ACETAMINOPHEN500 M4 PO
[2025-04-18 22:59] VITALS: BP 158/63
[2025-04-18] MEDS ORDERED: Bacitracin Zinc 14 GM TUBE T ONE (23:25)
[2025-04-18] MEDS ORDERED: Tdap Vaccine 0.5 ML SYR (Adult Vaccine) IM ONE (23:25)
== END 2025-04-18 23:37 | disposition home or self-care (01) ==
LOC: ED 22:48
DX: S50.311A Abrasion of right elbow, initial encounter (principal); S80.211A Abrasion, right knee, initial encounter; Z79.899 Other long term (current) drug therapy; Z91.040 Latex allergy status; Z98.890 Other specified postprocedural states; V19.3XXA Pedal cyclist (driver) (passenger) injured in unspecified nontraffic accident, initial encounter; Y93.89 Activity, other specified; Y92.89 Other specified places as the place of occurrence of the external cause; Y99.8 Other external cause status

== ENCOUNTER 2025-06-10 18:02 | Emergency (ER) | payer OTHER, MEDICAID | END 2025-06-10 18:36 | disposition left against medical advice (07) | LOC: ED 18:02 | DX: S49.92XA Unspecified injury of left shoulder and upper arm, initial encounter (principal); X58.XXXA Exposure to other specified factors, initial encounter; Y93.89 Activity, other specified; Y92.89 Other specified places as the place of occurrence of the external cause; Y99.8 Other external cause status ==

== ENCOUNTER → 2025-06-12 | Outpatient (CLI) | payer OTHER, MEDICAID | END | disposition home or self-care (01) | LOC: RAD 13:49 | PROVIDERS: ATTEND Internal Medicine | DX: M25.512 Pain in left shoulder (principal) ==